=== PATIENT | male | born 1955 | race Caucasian/White ===

== ENCOUNTER 2023-10-05 21:16 | Emergency (ER) | payer MEDICARE, SELFPAY ==
[2023-10-05 21:16] VITALS: BP 147/85; PULSE 119; RESP 16; TEMP 36.8; O2SAT 96; BMI 26.6
[2023-10-05 21:29] VITALS: BMI 28.7
--- NOTE | 2023-10-05 22:01 | EX.ED.GUMALE ---
HPI History of Present Illness Chief Complaint: Cardona C/O Narrative Narrative: 68-year-old male presenting with Cardona catheter needs. He states that he does not believe his Cardona catheter is draining well. He had it adjusted last night at [facility] and he states that he went in there because it was not draining right last night. He states that they deflated the ball but he thinks it took 3-1/2 cc out and only put 3 cc back and so he thinks that it is not working right he has had some leakage around the urethra of urine. He states he had to sit down and push the urine out into the Cardona catheter. Currently it appears to be draining well. He has a little bit abdominal pressure. [facility] Medications ?Medication ?Instructions ?Recorded ?Last Taken ?Type ampicillin sodium 2 gram solution 2 g IM Q4H 10/05/23 Unknown History for injection aspirin 81 mg tablet,delayed 81 mg PO DAILY 10/05/23 Unknown History release (Adult Aspirin Regimen) ceftriaxone 2 gram intravenous 2 g IV BID 10/05/23 Unknown History solution finasteride 5 mg tablet 5 mg PO DAILY 10/05/23 Unknown History fluticasone 250 mcg-salmeterol 50 1 ea inhalation BID 10/05/23 Unknown History mcg/dose blistr powdr for inhalation glimepiride 2 mg tablet 2 mg PO DAILY 10/05/23 Unknown History metformin 500 mg tablet 1,000 mg PO BID 10/05/23 Unknown History simvastatin 40 mg tablet 40 mg PO QHS 10/05/23 Unknown History tamsulosin 0.4 mg capsule 0.4 mg PO BID 10/05/23 Unknown History Allergy/AdvReac Type Severity Reaction Status Date / Time No Known Allergies Allergy Verified 10/05/23 21:19 Social History Smoking Status: Former smoker ROS ROS ED Constitutional Constitutional ED: Denies chills, fever(s) or sweats Eyes Eyes: Denies blurry vision or change in vision ENT ENT ED: Denies ear pain or sore throat Cardiovascular Cardiovascular: Denies chest pain, palpitations or racing heartbeat Respiratory/Chest Respiratory/Chest: Denies cough, dyspnea or sputum Gastrointestinal Gastrointestinal: Reports other Details: Suprapubic pressure ; Denies abdominal pain, constipation, diarrhea, nausea or vomiting Genitourinary Genitourinary ED: Denies dysuria, hematuria or urinary frequency Musculoskeletal Musculoskeletal: Denies arthralgias, myalgias or neck pain Integumentary Denies abscess, Abrasions or rash Neurologic Neurologic: Denies headache(s), paresthesias or weakness Psychiatric Psychiatric: Denies anxiety, depression, suicidal ideation or suicidal thoughts Endocrine Endocrinology: Denies polydipsia or polyuria EXAM Physical Exam Const Vital Signs: 10/05/23 21:16 10/05/23 23:00 Temperature 98.2 F 98.1 F Temperature Source Temporal Pulse Rate 119 H 91 Respiratory Rate 16 16 Blood Pressure 147/85 H 137/84 H Blood Pressure Mean 105 101 Pulse Ox 96 98 Oxygen Delivery Method Room Air Positive well nourished General Appearance ED: NAD HEENT Reports moist mucous membranes normocephalic and atraumatic Eyes PERRL Resp normal respiratory effort Cardio regular rate and regular rhythm GI GI Narrative: Mild suprapubic pressure. Narrative: Slightly yellow to clear urine flowing from the tip of the urethra to the Cardona catheter bag. No leakage noted around the Cardona catheter. Neuro oriented x3 and CN's II-XII intact bilaterally Sensorium / Orientation: alert Motor Exam: strength 5/5 throughout Psych mental status grossly normal MDM MDM MDM Narrative Medical decision making narrative: Patient's Cardona catheter appears to be in good position. It is draining. Bladder scan shows 74 cc in the bladder. He wants us to try to adjusted because he still does not think it is flowing right even though it is clearly flowing. He states that he has been drinking plenty of fluids. He does not believe he could be dehydrated. Can will have the nurse adjust this and will monitor. Cardona catheter was adjusted. Urine is flowing normally now. Patient is happy with this. Discharged in stable condition. Impression: 1. Cardona catheter care Lab Data Attestation: I reviewed the patient's lab results. Discharge Plan Triage Chief Complaint: Cardona C/O ED Provider: Lorne Hurley Dx/Rx/DC Orders Instructions: ED Cardona Catheter, Care Prescriptions: No Action metformin 500 mg tablet 1,000 mg PO BID ceftriaxone 2 gram recon soln 2 g IV BID ampicillin sodium 2 gram recon soln 2 g IM Q4H tamsulosin 0.4 mg capsule 0.4 mg PO BID fluticasone propion-salmeterol 250-50 mcg/dose blister with device 1 ea inhalation BID simvastatin 40 mg tablet 40 mg PO QHS glimepiride 2 mg tablet 2 mg PO DAILY finasteride 5 mg tablet 5 mg PO DAILY aspirin [Adult Aspirin Regimen] 81 mg tablet,delayed release (DR/EC) 81 mg PO DAILY Primary Care Provider: Ash Jones Referrals: Kali Garcia MD [STAFF PHYSICIAN] - Print Language: Czech Disposition Disposition: Home, Self Care Discharge Date/Time: 10/05/23 23:08
[2023-10-05 23:00] VITALS: BP 137/84; PULSE 91; RESP 16; TEMP 36.7; O2SAT 98
== END 2023-10-05 23:08 | disposition home or self-care (01) ==
PROVIDERS: Emergency Provider Student in an Organized Health Care Education/Training Program; PCP Family Medicine; Visit Provider Student in an Organized Health Care Education/Training Program
DX: Z46.6 Encounter for fitting and adjustment of urinary device (principal); Z87.891 Personal history of nicotine dependence
CPT/HCPCS: 99282

== ENCOUNTER → 2024-05-11 | Outpatient (CLI) | payer MEDICARE, SELFPAY | END | disposition home or self-care (01) | PROVIDERS: PCP Family Medicine; Referring Provider Family Medicine; Visit Provider Family Medicine | DX: R82.0 Chyluria (principal); R82.998 Other abnormal findings in urine | CPT/HCPCS: 87077; 87086; 87088; 87186 ==